=== PATIENT | female | born 1975 | race African-American/Black ===

== ENCOUNTER 2021-09-20 19:20 | Emergency (ER) | payer OTHER ==
[~2021-09-20] VITALS: Ht 172.7 cm; Wt 163.3 kg
[~2021-09-20 19:20] MED LIST: CLOTRIMAZOLE-BE15 GM TP; HYDROCHLOROTHIA25 M2; IBUPROFEN 800800 M1; LISINOPRIL40 MG; NORCO 5-325 TA1 EAC1 PO; PROMETHAZINE-C120 ML PO
[2021-09-20] MEDS ORDERED: NORVASC5 MG PO (19:45)
[2021-09-21 03:07] LABS: HEMATOCRIT 35.1 % (37.0-47.0); HEMOGLOBIN 11.4 gm/dL (12.0-15.0); MCH 28.9 pg (26.0-34.0); MCHC 32.5 g/dL (28.0-37.0); MCV 89.1 fL (80.0-100.0); MPV 6.8 fl. (7.2-11.1); RBC 3.94 mil/uL (4.20-5.00); RDW-CV 15.4 % (10.5-14.5); WBC 14.6 thou/uL (4.0-11.0)
[2021-09-21 03:35] LABS: CALCIUM 8.8 mg/dL (8.5-10.1); POTASSIUM 3.7 mmol/L (3.5-5.1)
[2021-09-21 03:39] LABS: ALBUMIN 3.2 g/dL (3.4-5.0); TOTAL BILIRUBIN 0.2 mg/dL (<0.1-1.0)
[2021-09-21] MEDS ORDERED: AMBIEN 5 MG TABL5 M1 PO (04:01)
[2021-09-21 04:10] VITALS: BP 166/95
--- NOTE | 2021-09-21 10:02 | EKG ---
[place] [address] ELECTROCARDIOGRAM REPORT Name: SARAHKASSANDRAGLORIAMinoo WESLEYSanam Room: [facility]#: [id number] Admission: 09/20/21 Attend Phys: Discharge: 09/21/21 Date of : 73 Date of Service: 09/20/211946 Report #: [id number] THIS REPORT FOR: //name// [facility] ED Test Date: 2021-09-20 Test Time: 19:47:52 Pat Name: HOMERO SMITH Department: Room: Gender: F Artist'S Model: : 1975 Requested By: Luli Gonsalves Order Number: [id number] MD: Kevin Scott Measurements Intervals [place] Rate: 99 P: 5 GA: 145 QRS: 24 QRSD: 79 T: -25 QT: 411 QTc: 528 Interpretive Statements Sinus rhythm Probable left atrial enlargement Borderline repolarization abnormality Prolonged QT interval Baseline wander in lead(s) II Compared to ECG 02/22/2012 20:15:34 Prolonged QT interval now present and minor nonspecific ST-T changes have occurred Electronically Signed On 09-21-2021 10:02:50 [employer] by Kevin Scott [email or web address] <ELECTRONICALLY SIGNED> By: Kevin Scott MD, FACC 09/21/21 1002 46 46 Kevin Scott MD, FAC /EPI
--- NOTE | 2021-09-21 10:03 | EKG ---
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: JENNIFER : 1975 Requested By: Luli Gonsalves Order Number: [id number] : Kevin Scott Measurements Intervals [place] Rate: 75 P: 45 CT: 156 QRS: 44 QRSD: 86 T: 27 QT: 384 QTc: 429 Interpretive Statements Sinus rhythm Compared to ECG 09/20/2021 19:47:52 Prolonged QT interval no longer present Electronically Signed On 09-21-2021 10:03:20 [employer] CLAIMS MANAGER by Kevin Scott [email or web address] <ELECTRONICALLY SIGNED> By: Kevin Scott MD, [facility] 09/21/21 1003 0240 0240 Kevin Scott MD, [facility] /EPI
== END 2021-09-21 04:10 | disposition home or self-care (01) ==
LOC: M.ERS 19:20
PROVIDERS: Personal Emergency Response Attendant
DX: F41.9 Anxiety disorder, unspecified (principal); R00.2 Palpitations; I10 Essential (primary) hypertension; R05.9 Cough, unspecified; Z98.890 Other specified postprocedural states; Z79.899 Other long term (current) drug therapy